=== PATIENT | male | born 1960 | race Caucasian/White ===

== ENCOUNTER 2017-10-08 12:50 | Emergency (ER) | payer MEDICARE, OTHER ==
[2017-10-08] MEDS ORDERED: Ketorolac INJ* 60 MG/2 ML VIAL IM ONE (14:20)
[2017-10-08 14:47] VITALS: BP 171/103
--- NOTE | 2017-10-08 14:52 | ED ---
Lower Extremity - HPI Summary HPI Summary: Patient is a 56-year-old male who presents emergency for pain to the back of his right heel x several days. Patient takes chronic narcotics for his back which are not helping his foot. He does not recall any other injuries or falls. Patient states pain is worse with walking. Pt. notes he has had a remote injury to Achilles tendon in the past. Symptoms are mild in severity. - History of Current Complaint Chief Complaint: EDExtremityLower Stated Complaint: RT FOOT PAIN Time Seen by Provider: 10/08/17 14:07 Hx Obtained From: Patient Pain Intensity: 5 Pain Scale Used: 0-10 Numeric - Allergies/Home Medications Allergies/Adverse Reactions: Allergies Allergy/AdvReac Type Severity Reaction Status Date / Time No Known Allergies Allergy Verified 10/08/17 12:58 PMH/Surg Hx/FS Hx/Imm Hx Previously Healthy: Yes Infectious Disease History: No Infectious Disease History: Denies: Traveled Outside the [place] in Last 30 Days - Social History Occupation: Disabled Lives: With Family Alcohol Use: Daily Substance Use Type: Reports: None Smoking Status (MU): Never Smoked Tobacco Review of Systems Constitutional: Negative Positive: Other - Pain to right foot. All Other Systems Reviewed And Are Negative: Yes Physical Exam Triage Information Reviewed: Yes Vital Signs On Initial Exam: Initial Vitals Temp Pulse Resp BP Pulse Ox 97.0 F 86 14 181/93 95 10/08/17 12:56 10/08/17 12:56 10/08/17 12:56 10/08/17 12:56 10/08/17 12:56 Vital Signs Reviewed: Yes Appearance: Positive: Well-Appearing - Pt. lying on bed in NAD. Family present. Skin: Positive: Warm, Dry Head/Face: Positive: Normal Head/Face Inspection Eyes: Positive: Normal Musculoskeletal: Positive: Other - Pain on palpation over the right achilles tendon. No erythema, wounds or signs of infection. No palpable bony tenderness of foot or ankle. No calf edema or pain. Psychiatric: Positive: Normal Diagnostics - Vital Signs Vital Signs Temp Pulse Resp BP Pulse Ox 10/08/17 14:45 98.3 F 84 18 171/103 99 10/08/17 12:56 97.0 F 86 14 181/93 95 - Laboratory Lab Statement: Any lab studies that have been ordered have been reviewed, and results considered in the medical decision making process. Lower Extremity Course/Dx - Course Assessment/Plan: Pt. presenting with atraumatic pain to right posterior foot. Exam consistant with achilles tenonditis. No imaging ordered today. Recommend NSAID. Pt. was given dose of toradol in ER. Rx for naproxen. Advised pt. to f.u with ortho. if sxs continue. Pt. understands and agrees with plan. - Diagnoses Differential Diagnosis/HQI/PQRI: Positive: Arthritis, Sprain, Strain Provider Diagnoses: Achilles tendinitis Discharge - Sign-Out/Discharge Documenting (check all that apply): Discharge/Admit/Transfer - Discharge Plan Condition: Good Disposition: HOME Prescriptions: Naproxen [Naproxen 500 mg tab] 500 mg PO BID #20 tablet Patient Education Materials: Achilles Tendinitis (ED) Referrals: Camacho Glynn MD [Medical Doctor] - Sam Adams MD [Primary Care Provider] - Additional Instructions: Schedule an appointment with orthopedics if symptoms continue Ice and elevate Naproxen as directed for pain - Billing Disposition and Condition Condition: GOOD Disposition: HOME
== END 2017-10-08 14:45 | disposition home or self-care (01) ==
LOC: ED 12:50
DX: M76.61 Achilles tendinitis, right leg (principal)
CPT/HCPCS: 96372; 99281; J1885

== ENCOUNTER 2018-05-25 08:29 | Emergency (ER) | payer MEDICARE, OTHER ==
[2018-05-25 08:42] VITALS: BP 164/106
--- NOTE | 2018-05-25 09:39 | UC ---
Throat Pain/Nasal [place] HPI - HPI Summary HPI Summary: ONSET OF URI SX YESTERDAY - COUGH, CONGESTION. THIS MORNING WOKE UP WITH ST AND PAIN WITH SWALLOWING. WANTS TO MAKE SURE HE DOESN'T HAVE STREP. NO FEVER, N/V. - History of Current Complaint Chief Complaint: UCGeneralIllness Stated Complaint: SORE THROAT Hx Obtained From: Patient Onset/Duration: Gradual Onset, Lasting Days, Still Present Severity: Moderate Pain Intensity: 10 Pain Scale Used: 0-10 Numeric Cough: Nonproductive Associated Signs & Symptoms: Positive: Nasal Discharge. Negative: Hoarseness, Fever - Allergies/Home Medications Allergies/Adverse Reactions: Allergies Allergy/AdvReac Type Severity Reaction Status Date / Time No Known Allergies Allergy Verified 05/25/18 08:43 Home Medications: Home Medications traMADol TAB* [Ultram*] 50 mg PO DAILY 05/25/18 [History Confirmed 05/25/18] PMH/Surg Hx/FS Hx/Imm Hx - Additional Past Medical History Additional PMH: CHRONIC LOW BACK PAIN - SPINAL STENOSIS, DDD - Surgical History Surgical History: Yes Surgery Procedure, Year, and Place: hernia repair /failed - Family History Known Family History: Positive: Non-Contributory - Social History Alcohol Use: Daily Alcohol Amount: 2 daily Substance Use Type: None Smoking Status (MU): Never Smoked Tobacco Review of Systems All Other Systems Reviewed And Are Negative: Yes Constitutional: Positive: Negative ENT: Positive: Sore Throat, Nasal Discharge Respiratory: Positive: Cough Cardiovascular: Positive: Negative Gastrointestinal: Positive: Negative Physical Exam Triage Information Reviewed: Yes Appearance: Well-Appearing, No Pain Distress, Well-Nourished Vital Signs: Initial Vital Signs Temp 98 F 05/25/18 08:36 Pulse 98 05/25/18 08:36 Resp 17 05/25/18 08:36 BP 164/106 05/25/18 08:36 Pulse Ox 98 05/25/18 08:36 Laboratory Tests 05/25/18 08:50 Group A Strep Rapid Negative Vital Signs Reviewed: Yes Eyes: Positive: Conjunctiva Clear ENT: Positive: Hearing grossly normal, Pharyngeal erythema, TMs normal Neck: Positive: Supple, Nontender, No Lymphadenopathy Respiratory Exam: Normal Cardiovascular Exam: Normal Abdomen Description: Positive: Soft Musculoskeletal: Positive: No Edema Neurological: Positive: Alert Psychological: Positive: Age Appropriate Behavior Skin: Negative: Rashes Throat Pain/Nasal Course/Dx - Differential Dx/Diagnosis Provider Diagnosis: Acute pharyngitis Discharge - Sign-Out/Discharge Documenting (check all that apply): Patient Departure All imaging exams completed and their final reports reviewed: No Studies - Discharge Plan Condition: Stable Disposition: HOME Prescriptions: Magic Mouth Was-GABRIELLE/MAAL/LIDO* 5 - 10 ml SWISH SWAL QID PRN #150 ml PRN Reason: Sore Throat Patient Education Materials: Pharyngitis (ED), Upper Respiratory Infection (ED) Referrals: Sam Adams MD [Primary Care Provider] - If Needed Additional Instructions: YOUR SYMPTOMS ARE LIKELY VIRALLY MEDIATED AND SHOULD RESOLVE ON THEIR OWN WITH TIME. NO INDICATION FOR ANTIBIOTICS AT PRESENT. REST, HYDRATE, OTC MEDS NEEDED. MAGIC MOUTHWASH NEEDED TO HELP WITH THROAT PAIN. YOU CAN ALSO USE OTC CHLORASEPTIC OR CEPACOL LOZENGES/SPRAYS. SEEK FOLLOW-UP IF YOU ARE NOT IMPROVING OVER THE NEXT 1-2 WEEKS. - Billing Disposition and Condition Condition: STABLE Disposition: Home
== END 2018-05-25 09:30 | disposition home or self-care (01) ==
LOC: UCEAST 08:29
DX: J02.9 Acute pharyngitis, unspecified (principal)
CPT/HCPCS: 87651; 99212; G0463

== ENCOUNTER 2021-03-02 08:42 | Observation (INO) ==
[2021-03-02] MEDS ORDERED: NS 0.9% 1000 ml BAG 1,000 ML IV SCH (09:15)
[2021-03-02 09:18] LABS: ABS Eosinophils 0.2 10^3/ul (0-0.6); ABS Lymphocytes 1.1 10^3/ul (1.0-4.8); ABS Monocytes 0.5 10^3/ul (0-0.8); ABS Neutrophils 3.5 10^3/ul (1.5-7.7); Hematocrit 44 % (42-52); Lymphocyte % 20.3 %; Mean Corpuscular HGB Conc 35 g/dL (31-36); Mean Corpuscular Hemoglobin 32 pg (27-31); Mean Corpuscular Volume 92 fL (80-94); Mean Platelet Volume 8.2 fL (7.4-10.4); Platelet Count 176 10^3/uL (150-450); Red Blood Count 4.71 10^6 /uL (4.18-5.48); Red Cell Distribution Width 13 % (10-15); White Blood Count 5.2 10^3/uL (3.5-10.8)
[2021-03-02 09:33] LABS: INR 1.04 (0.86-1.15)
[2021-03-02 09:35] LABS: Albumin 4.3 g/dL (3.2-5.2); Albumin/Globulin Ratio 1.5 (1-3); Calcium 8.9 mg/dL (8.6-10.3); EGFR African American 98.7 (>60); EGFR Non-African American 81.6 (>60); Globulin 2.8 g/dL (2-4); Magnesium 1.9 mg/dL (1.9-2.7); Potassium 3.9 mmol/L (3.5-5.0); Total Bilirubin 0.6 mg/dL (0.2-1.0); Total Protein 7.1 g/dL (6.4-8.9)
[2021-03-02 12:15] LABS: Hematocrit 39 % (42-52); Hemoglobin 13.7 g/dL (14.0-18.0)
[2021-03-02] MEDS ORDERED: Al Hydrox/Mg Hydrox/Simet LIQ 30 ML UDC PO PRN (14:23)
[2021-03-02 16:18] LABS: Hematocrit 38 % (42-52); Hemoglobin 13.1 g/dL (14.0-18.0); Mean Corpuscular HGB Conc 35 g/dL (31-36); Mean Corpuscular Hemoglobin 32 pg (27-31); Mean Corpuscular Volume 93 fL (80-94); Mean Platelet Volume 8.2 fL (7.4-10.4); Platelet Count 152 10^3/uL (150-450); Red Blood Count 4.08 10^6 /uL (4.18-5.48); Red Cell Distribution Width 13 % (10-15); White Blood Count 5.6 10^3/uL (3.5-10.8)
[2021-03-02] MEDS: Morphine ER 30 mg TAB ** extended release PO SCH (21:08)
[2021-03-03 06:08] LABS: ABS Eosinophils 0.3 10^3/ul (0-0.6); ABS Lymphocytes 1.8 10^3/ul (1.0-4.8); ABS Monocytes 0.6 10^3/ul (0-0.8); ABS Neutrophils 3.1 10^3/ul (1.5-7.7); Eosinophil % 4.8 %; Hematocrit 36 % (42-52); Hemoglobin 12.9 g/dL (14.0-18.0); Lymphocyte % 30.3 %; Mean Corpuscular HGB Conc 36 g/dL (31-36); Mean Corpuscular Hemoglobin 32 pg (27-31); Mean Corpuscular Volume 91 fL (80-94); Mean Platelet Volume 8.3 fL (7.4-10.4); Platelet Count 155 10^3/uL (150-450); Red Blood Count 3.99 10^6 /uL (4.18-5.48); Red Cell Distribution Width 13 % (10-15); White Blood Count 5.8 10^3/uL (3.5-10.8)
[2021-03-03] MEDS: Morphine ER 30 mg TAB ** extended release PO SCH ×2 (10:07→21:21)
[2021-03-03] MEDS ORDERED: PEG 3000 GI LAVAGE 1 GALLON PO ONE (15:36)
[2021-03-03 16:54] LABS: ABS Eosinophils 0.2 10^3/ul (0-0.6); ABS Lymphocytes 1.7 10^3/ul (1.0-4.8); ABS Monocytes 0.6 10^3/ul (0-0.8); ABS Neutrophils 2.6 10^3/ul (1.5-7.7); Eosinophil % 3.3 %; Hematocrit 35 % (42-52); Hemoglobin 12.4 g/dL (14.0-18.0); Mean Corpuscular HGB Conc 35 g/dL (31-36); Mean Corpuscular Hemoglobin 32 pg (27-31); Mean Corpuscular Volume 91 fL (80-94); Mean Platelet Volume 8.2 fL (7.4-10.4); Platelet Count 157 10^3/uL (150-450); Red Blood Count 3.84 10^6 /uL (4.18-5.48); Red Cell Distribution Width 13 % (10-15); White Blood Count 5.1 10^3/uL (3.5-10.8)
[2021-03-04 05:04] LABS: ABS Eosinophils 0.2 10^3/ul (0-0.6); ABS Lymphocytes 1.3 10^3/ul (1.0-4.8); ABS Monocytes 0.5 10^3/ul (0-0.8); ABS Neutrophils 3.1 10^3/ul (1.5-7.7); Eosinophil % 3.5 %; Hematocrit 34 % (42-52); Hemoglobin 12.2 g/dL (14.0-18.0); Lymphocyte % 24.9 %; Mean Corpuscular HGB Conc 36 g/dL (31-36); Mean Corpuscular Hemoglobin 33 pg (27-31); Mean Corpuscular Volume 91 fL (80-94); Mean Platelet Volume 8.6 fL (7.4-10.4); Platelet Count 148 10^3/uL (150-450); Red Blood Count 3.73 10^6 /uL (4.18-5.48); Red Cell Distribution Width 13 % (10-15); White Blood Count 5.1 10^3/uL (3.5-10.8)
[2021-03-04 05:18] LABS: Calcium 8.4 mg/dL (8.6-10.3); EGFR African American 98.7 (>60); EGFR Non-African American 81.6 (>60); Potassium 3.6 mmol/L (3.5-5.0)
[2021-03-04] MEDS: Morphine ER 30 mg TAB ** extended release PO SCH (09:17)
[2021-03-04 14:09] LABS: ABS Eosinophils 0.1 10^3/ul (0-0.6); ABS Lymphocytes 1.5 10^3/ul (1.0-4.8); ABS Monocytes 0.6 10^3/ul (0-0.8); ABS Neutrophils 3.2 10^3/ul (1.5-7.7); Eosinophil % 1.8 %; Hematocrit 36 % (42-52); Hemoglobin 12.6 g/dL (14.0-18.0); Mean Corpuscular HGB Conc 35 g/dL (31-36); Mean Corpuscular Hemoglobin 32 pg (27-31); Mean Corpuscular Volume 92 fL (80-94); Mean Platelet Volume 8.7 fL (7.4-10.4); Nucleated Red Blood Cells % 0.1; Platelet Count 168 10^3/uL (150-450); Red Blood Count 3.94 10^6 /uL (4.18-5.48); Red Cell Distribution Width 13 % (10-15); White Blood Count 5.5 10^3/uL (3.5-10.8)
[2021-03-04 16:13] VITALS: BP 150/78
== END 2021-03-04 16:45 | disposition home or self-care (01) ==
LOC: MEDTELE 08:42 → ED 08:42 → SUATTDRO 14:23 → MEDTELE 03-03 02:36
PROVIDERS: ADMIT Internal Medicine; ATTEND Internal Medicine

== ENCOUNTER 2023-06-26 09:45 | Observation (INO) ==
[2023-06-26 10:35] LABS: ALT 26 U/L (7-52); Albumin 4.6 g/dL (3.2-5.2); Albumin/Globulin Ratio 1.6 (1-3); Alkaline Phosphatase 62 U/L (35-149); Anion Gap 8 mmol/L (2-16); Blood Urea Nitrogen 18 mg/dL (6-24); CO2 Carbon Dioxide 29 mmol/L (22-32); Calcium 9.3 mg/dL (8.6-10.3); Chloride 102 mmol/L (101-111); Cholesterol 198 mg/dL; Creatinine, Serum 0.98 mg/dL (0.67-1.17); Globulin 2.9 g/dL (2-4); Glucose 112 mg/dL (70-100); LDL Cholesterol 109 mg/dL; Sodium 139 mmol/L (135-145); Total Bilirubin 0.7 mg/dL (0.2-1.0); Total Protein 7.5 g/dL (6.4-8.9); Triglycerides 151 mg/dL; eGFR CKD-EPI 86.6 (>60)
[2023-06-26 10:45] LABS: Hematocrit 39.3 % (38-53); Hemoglobin 13.6 g/dL (13.2-16.3); Mean Corpuscular Hemoglobin 31.1 pg (27-33); Mean Corpuscular Hgb Conc 34.8 g/dL (31-36); Mean Corpuscular Volume 89.6 fL (80-97); Mean Platelet Volume 7.8 fL (7.5-11.2); Platelet Count 208 10^3/uL (150-450); Red Blood Count 4.38 10^6/uL (4.06-5.63); Red Cell Distribution Width 12.4 % (12-17)
[2023-06-26 11:15] LABS: INR 1.05 (0.83-1.13)
[2023-06-26 11:46] LABS: Direct Bilirubin Redraw 0.1 mg/dL (0.1-0.5); Potassium Redraw 4.2 mmol/L (3.5-5.0)
[2023-06-26] MEDS ORDERED: Iohexol 350 (CONTRAST) 500 ML MDV IV ONE (12:06)
[2023-06-26 12:55] LABS: Urine Appearance Clear; Urine Bilirubin Negative (Negative); Urine Blood Negative (Negative); Urine Color Straw; Urine Glucose Negative (Negative); Urine Ketones Negative (Negative); Urine Nitrite Negative (Negative); Urine Protein Negative (Negative); Urine Specific Gravity 1.008 (1.002-1.030); Urine Urobilinogen Negative (Negative)
[2023-06-26] MEDS ORDERED: Enoxaparin 40 MG/0.4 ML SYR SUBCUT SCH (17:00)
[2023-06-26 17:07] LABS: HDL Cholesterol 53.8 mg/dL
[2023-06-26] MEDS ORDERED: Morphine ORAL.SOLN 10 mg 2 mg/ml UDC 5 ml (10 mg) PO PRN (17:36)
[2023-06-26] MEDS: Morphine ER 30 mg TAB ** extended release PO PRN (20:00)
[2023-06-27 07:05] LABS: ABS Eosinophils 0.1 10^3/uL (0.0-0.5); ABS Lymphocytes 1.8 10^3/uL (1.0-4.8); ABS Monocytes 0.7 10^3/uL (0.0-1.1); ABS Neutrophils 3.5 10^3/uL (1.5-7.6); ABS Nucleated RBC 0.01 10^3/ul; Eosinophil % 1.9 %; Hematocrit 40.4 % (38-53); Hemoglobin 14.1 g/dL (13.2-16.3); Lymphocyte % 29.6 %; Mean Corpuscular Hemoglobin 31.4 pg (27-33); Mean Corpuscular Hgb Conc 34.9 g/dL (31-36); Mean Corpuscular Volume 89.9 fL (80-97); Mean Platelet Volume 8.3 fL (7.5-11.2); Nucleated Red Blood Cells % 0.2 %/100WBC (0.0-0.8); Platelet Count 205 10^3/uL (150-450); Red Blood Count 4.49 10^6/uL (4.06-5.63); Red Cell Distribution Width 12.4 % (12-17); White Blood Count 6.2 10^3/uL (3.6-10.2)
[2023-06-27 07:17] LABS: Calcium 8.9 mg/dL (8.6-10.3); Creatinine, Serum 0.96 mg/dL (0.67-1.17); Magnesium 2.1 mg/dL (1.9-2.7); eGFR CKD-EPI 88.8 (>60)
[2023-06-27] MEDS ORDERED: Sulfur Hexaflouride MICROSPHR 25 MG VIAL ONE (08:30)
[2023-06-27] MEDS: Morphine ER 30 mg TAB ** extended release PO PRN (10:15)
[2023-06-27 13:38] VITALS: BP 126/78
== END 2023-06-27 16:20 | disposition home or self-care (01) ==
LOC: ED 09:45 → EDHOLD 09:45 → MEDTELE 18:02
PROVIDERS: ADMIT Hospitalist; ATTEND Hospitalist